=== PATIENT | female | born 1985 ===

== ENCOUNTER → 2017-09-08 | Outpatient (CLI) | payer OTHER | END | disposition home or self-care (01) | LOC: PLD 10:41 → LAB SHORT 10:41 | DX: D22.62 Melanocytic nevi of left upper limb, including shoulder (principal) | CPT/HCPCS: 88305 ==

== ENCOUNTER → 2017-09-16 | Outpatient (CLI) | payer OTHER | END | disposition home or self-care (01) | LOC: LAB SHORT 10:57 → PLD 10:57 | DX: D03.62 Melanoma in situ of left upper limb, including shoulder (principal) | CPT/HCPCS: 88305 ==